=== PATIENT | male | born 1995 | race Hispanic/Latino ===

== ENCOUNTER 2018-05-14 12:58 | Emergency (ER) | payer OTHER | END 2018-05-14 14:25 | disposition home or self-care (01) | LOC: EDH 12:58 | DX: H61.21 Impacted cerumen, right ear (principal); H60.8X1 Other otitis externa, right ear; Z72.0 Tobacco use ==

== ENCOUNTER 2018-12-22 09:29 | Emergency (ER) | payer SELFPAY ==
[2018-12-22] MEDS ORDERED: IBUPROFEN 600 MG TABLET ONE (09:42)
== END 2018-12-22 10:00 | disposition home or self-care (01) ==
LOC: EDH 09:29
DX: S89.91XA Unspecified injury of right lower leg, initial encounter (principal); M25.561 Pain in right knee; Z87.891 Personal history of nicotine dependence; X50.1XXA Overexertion from prolonged static or awkward postures, initial encounter; Y93.02 Activity, running; Y92.89 Other specified places as the place of occurrence of the external cause; Y99.8 Other external cause status
CPT/HCPCS: 73562

== ENCOUNTER 2020-03-24 08:35 | Emergency (ER) | payer SELFPAY | END 2020-03-24 09:20 | disposition home or self-care (01) | LOC: EDH 08:35 | DX: R06.02 Shortness of breath (principal); R06.00 Dyspnea, unspecified; J45.909 Unspecified asthma, uncomplicated; Z72.0 Tobacco use | CPT/HCPCS: 99281 ==

== ENCOUNTER 2021-03-21 15:16 | Emergency (ER) | payer OTHER ==
[~2021-03-21] VITALS: Ht 167.6 cm; Wt 154.2 kg
[2021-03-21 15:19] VITALS: BP 155/87
== END 2021-03-21 15:30 | disposition left against medical advice (07) ==
LOC: EDH 15:16
DX: R05 Cough (principal); Z53.21 Procedure and treatment not carried out due to patient leaving prior to being seen by health care provider

== ENCOUNTER 2023-04-26 12:26 | Emergency (ER) | payer BC ==
[~2023-04-26] VITALS: Ht 175.3 cm; Wt 198.7 kg
[2023-04-26 12:43] VITALS: BP 180/91; PULSE 80; RESP 16; O2SAT 96
[2023-04-26] MEDS ORDERED: CIPR7.5D OT (14:20)
[2023-04-26] MEDS ORDERED: DEXAMETHASONE SOD PHOSPHATE 4 MG/ML 1ML VIAL IM ONE (14:30)
== END 2023-04-26 14:48 | disposition home or self-care (01) ==
LOC: EDH 12:26
DX: H60.91 Unspecified otitis externa, right ear (principal); J45.909 Unspecified asthma, uncomplicated
CPT/HCPCS: 99284; 96372; J1100

== ENCOUNTER 2024-05-14 02:59 | Emergency (ER) | payer SELFPAY ==
[~2024-05-14] VITALS: Ht 175.3 cm; Wt 202.3 kg
[~2024-05-14 02:59] MED LIST: CIPR7.5D OT
[2024-05-14 03:13] VITALS: BP 154/88; PULSE 89; RESP 20; TEMP 98.2; O2SAT 97
== END 2024-05-14 03:27 | disposition home or self-care (01) ==
LOC: EDH 02:59
DX: H60.91 Unspecified otitis externa, right ear (principal); I10 Essential (primary) hypertension; J45.909 Unspecified asthma, uncomplicated

== ENCOUNTER 2025-02-15 23:19 | Emergency (ER) | payer SELFPAY ==
[~2025-02-15] VITALS: Ht 175.3 cm; Wt 202.3 kg
--- NOTE | 2025-02-16 01:06 | HMCIMG ---
EXAM: CR Right Elbow, 2 views. CLINICAL HISTORY: Pain. COMPARISON: None provided. FINDINGS: No acute fracture or aggressive appearing osseous lesion. Joint spaces are within normal limits. No radiographic evidence of joint effusion. The soft tissues are unremarkable. IMPRESSION: 1. No acute osseous abnormality. /[place]
[2025-02-16] MEDS: ORPHENADRINE 60MG/2ML IM ONE (01:17)
[2025-02-16 02:19] VITALS: BP 160/89; PULSE 90; RESP 18; TEMP 99; O2SAT 100
[2025-02-16] MEDS ORDERED: MELO-108 PO (02:20)
[2025-02-16] MEDS ORDERED: METH-811 PO (02:20)
--- NOTE | 2025-02-16 02:20 | ERN ---
General Chief Complaint: Arm Swelling/Redness Stated Complaint: C/O PAIN TO RIGHT ARM AFTER WAKING UP TODAY Time Seen by MD: 23:31 Time Seen by Midlevel: 23:31 Source: patient History of Present Illness Initial Comments 29-year-old male who presents to the emergency department due to right elbow pain onset this morning. Patient denies any injuries or trauma to the right upper extremity. Patient states pain initiated out of no were when he woke up. He has taken ibuprofen without any relief. PMHx HTN, prediabetic on Ozempic Allergies: Coded Allergies: No Known Drug Allergies (Unverified Allergy, Unknown, 03/24/20) Home Meds Active Scripts Methocarbamol (Methocarbamol) 500 Mg Tablet, 2 TAB PO TID for 5 Days, #30 TAB 0 Refills Prov:KOLTON THAKKAR 02/16/25 Meloxicam (Meloxicam) 15 Mg Tablet, 15 MG PO ONCE for 5 Days, #5 TAB Prov:KOLTON THAKKAR 02/16/25 Ciprofloxacin HCl/Dexameth (Ciprodex Otic Suspension) 7.5 Ml Drops.susp, 4 DROP OT BID for 7 Days, #1 BOTTLE Prov:KEKE RODRÍGUEZ 04/26/23 Past Medical History Past Medical History: Diabetes-Type II, Hypertension Past Surgical History: None ROS Dictation Constitutional: Negative for fever,chills, and weight loss Eyes: Negative for injury, pain,redness, and discharge ENT: Negative for injury,pain or swelling Cardiovascular: Negative for chest pain, palpitations, and edema Respiratory: Negative for shortness of breath, cough, and wheezing, Abdomen/GI: Negative for abdominal pain, nausea, vomiting, diarrhea, and constipation Back: Negative for injury and pain : Negative for painful urination, bleeding or discharge MS/Extremity: Positive for right elbow pain Negative for injury and deformity Skin: Negative for rash, and discoloration Neuro: Negative for headache, weakness, numbness, tingling, and seizure Psych: Negative for suicide ideation, homicidal ideation, and hallucinations Physical Exam Physical Exam Dictation General: awake, alert, no acute distress Head/Face: Normocephalic, atraumatic Eyes: PERRL, EOMI, normal conjunctiva ENT: oral cavity clear, oral mucosa moist Neck: Supple, normal range of motion Cardiovascular: RRR, normal S1/S2 Respiratory: CTAB, no respiratory distress Skin: Warm, dry, normal turgor, no rash MS/Extremity: Pulses equal, no cyanosis, neurovascular intact, FROM. Right elbow medial and lateral tenderness, no deformities, restricted range of motion due to pain Neuro: COAx4, GCS 15, strength 5/5, CN 2-12 intact, normal cerebellar exam, normal gait, Psych: Normal behavior, mood, and affect normal Results EKG/XRAY/US/CT/MRI X-RAY Comment REASON: pain ORDERING PHYSICIAN: KOLTON THAKKAR PROCEDURE: [id number] RT - ELBOW COMP 3+VWS RT EXAM: CR Right Elbow, 2 views. CLINICAL HISTORY: Pain. COMPARISON: None provided. FINDINGS: No acute fracture or aggressive appearing osseous lesion. Joint spaces are within normal limits. No radiographic evidence of joint effusion. The soft tissues are unremarkable. IMPRESSION: 1. No acute osseous abnormality. /[place] DICTATED BY: MCKINLEY BRITTON Jr., MD DATE: 02/16/25204 MDM MDM: Differential diagnosis: Fracture, dislocation, sprain, strain Rationale: 29-year-old male who presents to the emergency department due to right elbow pain onset this morning. Patient denies any injuries or trauma to the right upper extremity. Patient states pain initiated out of no were when he woke up. He has taken ibuprofen without any relief. PMHx HTN, prediabetic on Ozempic Per physical examination patient has tenderness on the lateral and medial aspect of the right elbow, neurovascularly intact, no deformities. X-rays of the right elbow obtained with no indications of acute abnormalities. Right upper extremity venous ultrasound obtained preliminary report stating negative for DVT. Tramadol and Norflex administered in the ED, some range of motion improvement as well as pain. Patient was placed on a sling. Advised to follow up with PCP. Return to the emergency department if any worsening symptoms. Patient verbalized understanding. Patient stable for discharge. There are no social concerns with this patient. I independently interpreted the test that were performed, results were reviewed by me and considered findings on radiology if ordered. Medical management and examination interpretation discussions were had by me with other qualified healthcare professionals as indicated for the patient's care. ED Course Orders Procedure Category Date Status Time Elbow Comp 3+Vws Rt RAD 02/15/25 Resulted 23:38 Tramadol Hcl (Ultram) PHA 02/16/25 Complete 00:30 Orphenadrine Citrate PHA 02/16/25 Complete (Norflex) 01:00 Us Venous Doppler US 02/16/25 Resulted Unilateral 01:32 Current Medications Medications (Trade) Dose Ordered Sig/Addy Route PRN Reason Start Time Stop Time Status Last Admin Dose Admin Orphenadrine Citrate (Norflex) 60 mg ONCE ONCE IM 02/16/25 01:00 02/16/25 01:01 DC 02/16/25 01:17 Tramadol HCl (UltRAM) 50 mg ONCE ONCE PO 02/16/25 00:30 02/16/25 00:31 DC 02/16/25 00:19 Vital Signs Date Time Temp Pulse Resp B/P (MAP) Pulse Ox O2 Delivery O2 Flow Rate FiO2 02/16/25 02:19 99.0 90 18 160/89 100 Room Air* 0 02/16/25 01:30 99.0 96 17 159/87 100 Room Air* 0 02/16/25 00:45 99.5 98 19 158/89 100 Room Air* 0 21 02/15/25 23:44 99.9 100 20 165/90 100 Room Air* 0 02/15/25 23:20 100.0 94 20 165/93 97 Room Air DX & DISP Disposition: Discharge Departure Impression: Primary Impression: Elbow pain, right Condition: Stable Scripts Methocarbamol (Methocarbamol) 500 Mg Tablet 2 TAB PO TID for 5 Days, #30 TAB 0 Refills Prov: KOLTON THAKKAR 02/16/25 Meloxicam (Meloxicam) 15 Mg Tablet 15 MG PO ONCE for 5 Days, #5 TAB Prov: KOLTON THAKKAR 02/16/25 Additional Instructions: Discharge home. Rest. Follow up with primary care in 24 hours. Return to the ER for any acute changes or worsening symptoms. If any medications were prescribed take as directed. Okay to continue home medications unless otherwise discussed during your visit in the emergency room today. Patient was also advised to follow-up with primary care physician in 1 to 2 days for continued monitoring. Referrals: SELF,REFERRAL (PCP) I performed the substantive portion of the visit. I have reviewed and personally made and approve the management plan that is documented in the notes by myself or the ESTEAL. I acknowledge full responsibility for the patient's management plan. KOLTON THAKKAR Feb 16, 2025 02:20
--- NOTE | 2025-02-16 02:21 | NUR ---
SLING APPLIED PER LOFT WORKER ORDERS, SLING INSTRUCTIONS PROVIDED TO PT, VERBALIZED UNDERSTANDING.
--- NOTE | 2025-02-16 03:28 | HMCIMG ---
EXAM: US for Deep Venous Thrombosis, right Upper Extremity. CLINICAL HISTORY: Rule out deep venous thrombosis. Pain. TECHNIQUE: Real-time ultrasound scan of the veins of the right upper extremity with color Doppler flow, spectral waveform analysis and compression. COMPARISON: None provided. FINDINGS: VEINS: The internal jugular and subclavian veins demonstrate flow. The axillary, cephalic, basilic, and brachial veins are echolucent, compressible, and demonstrate normal color Doppler flow. SOFT TISSUES: No acute finding. Suboptimal evaluation due to the patient's condition, pain, and unable to extend all the way. IMPRESSION: No deep venous thrombosis in the right upper extremity. /[place]
== END 2025-02-16 02:26 | disposition home or self-care (01) ==
LOC: EDH 23:19
DX: M25.521 Pain in right elbow (principal); E11.9 Type 2 diabetes mellitus without complications; I10 Essential (primary) hypertension; M79.631 Pain in right forearm
CPT/HCPCS: 73080; 93971; 96372; 99283; 99285; J2360